=== PATIENT | female | born 1985 | race Caucasian/White ===

== ENCOUNTER 2020-08-02 18:57 | Outpatient (REF) | payer MEDICAID, SELFPAY ==
[2020-08-04 10:28] LABS: HIV-1/2 Ag & Ab Screen Negative (Negative)
[2020-08-04 11:43] LABS: HSV Type 1 Ab, IgG Negative (Negative); HSV Type 2 Ab, IgG Positive (Negative)
[2020-08-04 11:47] LABS: Syphilis Serology (RPR) Negative (Negative)
== END 2020-08-02 19:17 ==
LOC: NCHCN 18:57
PROVIDERS: Visit Provider Nurse Practitioner Community Health
DX: T76.51XA Adult forced sexual exploitation, suspected, initial encounter (principal); Z11.4 Encounter for screening for human immunodeficiency virus [HIV]; Z11.59 Encounter for screening for other viral diseases
CPT/HCPCS: 87389; 86592; 86695; 86696

== ENCOUNTER 2020-09-18 14:59 | Outpatient (REF) | payer MEDICAID, SELFPAY ==
[2020-09-21 06:04] LABS: Chlamydia amplified RNA Negative (Negative); N gonorrhoeae amplified RNA Negative (Negative); Source URINE
== END 2020-09-18 15:19 ==
LOC: NCHCN 14:59
PROVIDERS: PCP Nurse Practitioner Community Health; Visit Provider Nurse Practitioner Community Health
DX: T76.51XA Adult forced sexual exploitation, suspected, initial encounter (principal); Z11.3 Encounter for screening for infections with a predominantly sexual mode of transmission
CPT/HCPCS: 87491; 87591

== ENCOUNTER 2020-10-26 19:59 | Outpatient (REF) | payer MEDICAID, SELFPAY ==
[2020-10-26 21:26] LABS: Abs Immature Grans 0.02 10^3/uL (0.0-0.06); Absolute Basophil Count 0.08 10^3/uL (0.0-0.2); Absolute Eosinophil Count 0.57 10^3/uL (0.0-0.7); Absolute Lymphocyte Count 3.21 10^3/uL (1.2-3.4); Absolute Monocyte Count 0.67 10^3/uL (0.1-0.8); Absolute Neutrophil Count 5.16 10^3/uL (1.2-6.7); Basophils % 0.8; Eosinophils % 5.9; HGB 13.3 g/dL (11.2-15.7); Immature Grans % 0.2; Lymphocytes % 33.1; MCH 32.8 pg (27.0-33.0); MCHC 34.1 % (32.0-36.0); MCV 96.3 fL (80-95); MPV 10.3 fL (8.0-11.0); Monocytes % 6.9; Neutrophils % 53.1; Nucleated RBC 0 %; Platelet Count 316 10^3/uL (130-400); RBC 4.05 10^6/uL (3.93-5.22); RDW 12.5 % (11.7-14.6); RDW-SD 44.8 fL; WBC 9.71 10^3/uL (4.4-10.8)
[2020-10-26 22:47] LABS: ALT 49 U/L (14-59); AST 33 U/L (15-37); Albumin 3.5 g/dL (3.4-5.0); Alkaline Phosphatase 89 U/L (46-116); Anion Gap 7.1 mmol/L (3-11); BUN 10 mg/dL (7-18); Bilirubin, Total 0.2 mg/dL (0.2-1.0); C-Reactive Protein 0.47 mg/dL (0.0-0.3); CO2 25.9 mmol/L (21.0-32.0); CREATININE 0.57 mg/dL (0.55-1.02); Calcium 8.9 mg/dL (8.5-10.1); Chloride 105 mmol/L (98-107); Glucose 92 mg/dL (74-106); Sodium 138 mmol/L (136-145)
== END 2020-10-26 20:19 ==
LOC: NCHCN 19:59
PROVIDERS: PCP Nurse Practitioner Community Health; Visit Provider Family Medicine
DX: L04.8 Acute lymphadenitis of other sites (principal); R21 Rash and other nonspecific skin eruption
CPT/HCPCS: 80053; 85025; 86140

== ENCOUNTER 2020-11-07 16:49 | Outpatient (REF) | payer MEDICAID, SELFPAY ==
--- NOTE | 2020-11-07 12:00 | PAPFT_PTH ---
PATIENT: Sally Barbour LOC: [facility]#:[id number] AGE/SX: 35/F ROOM: RE11/07/[address]: Miryam Youngblood : 1985 BED: DIS: 11/07/2020 SPEC #: [id number] RECD: 11/08/20 13:07 STATUS: SHERRIE RESriram #: [id number] DONELL: 11/07/20 12:[address]: Miryam Mckeon DEPT: [facility] Cytology RECD BY: Roxanne Pierre ENTERED: 11/08/20 13:07 SP TYPE: PAPFT OTHR DR: Lelia Edwards Tissues: 1 - CX/ENDOCX FOR PAP SMEARS Procedures: PAP THIN PREP/[facility] Screening HPV DNA PROBE Comments: [id number]
== END 2020-11-07 17:09 ==
LOC: NCHCN 16:49
PROVIDERS: PCP Nurse Practitioner Community Health; Visit Provider Nurse Practitioner Family
DX: Z12.4 Encounter for screening for malignant neoplasm of cervix (principal); Z11.51 Encounter for screening for human papillomavirus (HPV)
CPT/HCPCS: 88142; 87624

== ENCOUNTER 2022-04-30 17:25 | Outpatient (REF) | payer MEDICAID, SELFPAY ==
[2022-04-30 21:01] LABS: Abs Immature Grans 0.04 10^3/uL (0.0-0.06); Absolute Basophil Count 0.08 10^3/uL (0.0-0.2); Absolute Eosinophil Count 0.14 10^3/uL (0.0-0.7); Absolute Lymphocyte Count 2.94 10^3/uL (1.2-3.4); Absolute Monocyte Count 0.65 10^3/uL (0.1-0.8); Absolute Neutrophil Count 9.06 10^3/uL (1.2-6.7); Basophils % 0.6; Eosinophils % 1.1; HCT 37.5 % (36.0-46.0); HGB 12.8 g/dL (11.2-15.7); Immature Grans % 0.3; Lymphocytes % 22.8; MCH 32.5 pg (27.0-33.0); MCHC 34.1 % (32.0-36.0); MCV 95 fL (80-95); MPV 10.9 fL (8.0-11.0); Neutrophils % 70.2; Platelet Count 248 10^3/uL (130-400); RBC 3.94 10^6/uL (3.93-5.22); RDW 12.9 % (11.7-14.6); RDW-SD 45.5 fL; WBC 12.91 10^3/uL (4.4-10.8)
[2022-04-30 21:06] LABS: Mono Screening Negative (Negative)
[2022-04-30 21:08] LABS: ALT 18 U/L (14-59); AST 15 U/L (15-37); Albumin 3.5 g/dL (3.4-5.0); Alkaline Phosphatase 114 U/L (46-116); Anion Gap 10.7 mmol/L (3-11); BUN 9 mg/dL (7-18); Bilirubin, Total 0.2 mg/dL (0.2-1.0); CO2 22.3 mmol/L (21.0-32.0); CREATININE 0.6 mg/dL (0.55-1.02); Calcium 8.6 mg/dL (8.5-10.1); Chloride 106 mmol/L (98-107); Glucose 86 mg/dL (74-106); Potassium 3.6 mmol/L (3.5-5.1); Sodium 139 mmol/L (136-145); Total Protein 7.1 g/dL (6.4-8.2)
[2022-05-02 08:59] LABS: HBs Antibody, Quant 389.1 mIU/mL (See Note); Hepatitis B Surface Ab Positive (See Note)
[2022-05-02 09:24] LABS: HIV-1/2 Ag & Ab Screen Negative (Negative)
[2022-05-02 09:41] LABS: Hepatitis C Ab w Rflx HCV PCR Negative (Negative)
[2022-05-02 09:46] LABS: Syphilis Serology (RPR) Negative (Negative)
[2022-05-02 15:04] LABS: Chlamydia Result Negative (Negative); GC Result Negative (Negative)
[2022-05-07 15:04] LABS: Chlamydia amplified RNA Negative (Negative)
[2022-05-07 15:05] LABS: N gonorrhoeae amplified RNA Negative (Negative)
[2022-05-07 15:06] LABS: Chlamydia amplified RNA Negative (Negative); N gonorrhoeae amplified RNA Negative (Negative)
== END 2022-04-30 17:26 | disposition home or self-care (01) ==
LOC: NCHCN 17:25
PROVIDERS: PCP Nurse Practitioner Community Health; Visit Provider Nurse Practitioner Family
DX: J03.90 Acute tonsillitis, unspecified (principal); Z11.3 Encounter for screening for infections with a predominantly sexual mode of transmission; Z11.4 Encounter for screening for human immunodeficiency virus [HIV]; Z11.59 Encounter for screening for other viral diseases
CPT/HCPCS: 80053; 86706; 86803; 87389; 87491; 87591; 85025; 86308; 86592